=== PATIENT | female | born 1975 | race Caucasian/White ===

== ENCOUNTER 2022-07-05 19:29 | Emergency (ER) | payer BC, SELFPAY ==
[2022-07-05 19:31] VITALS: BP 143/91; PULSE 91; RESP 14; TEMP 36.3; O2SAT 97; BMI 34.9
--- NOTE | 2022-07-05 20:01 | ED_ITS ---
HPI - General Adult General Chief complaint: Ear/Nose/Throat Problem Stated complaint: Ear/sinus pain Time Seen by Provider: 07/05/22 19:38 History of Present Illness HPI narrative: 46-year-old woman presenting to the emergency department with concern of left- sided facial pain. She is worried she might have a sinus infection or a eye ear infection. She did have some what sounds like postnasal drip starting about a week ago. Not really with sore throat. Occasional lightly phlegm ache cough. Short of breath. No chest pain. She woke then about 3 to days ago with soreness in her left face or jaw area upper, such that she felt as though she has been clenching her teeth all night. She does not know that she does that. Is not describing pain with eating really. No drainage from ears. No fevers. She thought maybe was having some dental problem. Just seems uncertain. She denies seasonal environmental allergies. Related Data Home Medications Medication Instructions Recorded Confirmed No Known Home Medications 07/05/22 07/05/22 Allergies Allergy/AdvReac Type Severity Reaction Status Date / Time No Known Drug Allergies Allergy Verified 07/05/22 19:34 Review of Systems Status of ROS: Reports: 6 or more systems reviewed and unremarkable except as noted in History and below [facility] Social History Smoking Status: Never smoker How often do you have a drink containing alcohol: never AUDIT-C Alcohol total score: 0 Non-prescribed substance use: denies use Exam Narrative: Exam Narrative: Pleasant. NAD. Does not sound to be congested. Breathing easily and lungs appear to be clear. Head is atraumatic. Ear canals are clear of inflammation and fluid. TMs bilaterally are clear. There is no tenderness palpation of the pin AR tragus. TMJ area seems to be free of pain as well though there is a little crepitus palpated. She is not sore to palpation along the mandible over the masseter musculature. Parotid gland area is also nontender. Oropharynx is moist with dentition in good repair. Has some mild inflammation around the left parotid duct but again not sore to palpation in this area. Posterior oropharynx with some cobblestoning. No facial swelling or erythema she is mildly tender to percussion over the left maxillary sinus. Extraocular movements are full in appear to be without pain. Const: Vital Signs, click to edit/add: Vital Signs - 24 hr 07/05/22 19:31 Temperature 97.3 F L Pulse Rate [Pulse Oximeter] 91 Respiratory Rate 14 Blood Pressure [Ri ght Upper Arm] 143/91 H Pulse Oximetry 97 Oxygen Delivery Me thod Room Air Documenting provider has reviewed patient's vital signs: yes Course Vital Signs Vital signs: Initial Vital Signs Temperature 97.3 F L 07/05/22 19:31 Temperature Source Temporal Artery Scan 07/05/22 19:31 Pulse Rate 91 07/05/22 19:31 Pulse Rhythm Regular 07/05/22 19:31 Respiratory Rate 14 07/05/22 19:31 Blood Pressure 143/91 H 07/05/22 19:31 Blood Pressure Mean 108 H 07/05/22 19:31 Blood Pressure Position Sitting 07/05/22 19:31 Pulse Oximetry 97 07/05/22 19:31 Oxygen Delivery Method Room Air 07/05/22 19:31 Vital Signs Temperature 97.3 F L 07/05/22 19:31 Pulse Rate 91 07/05/22 19:31 Respiratory Rate 14 07/05/22 19:31 Blood Pressure 143/91 H 07/05/22 19:31 Pulse Oximetry 97 07/05/22 19:31 Oxygen Delivery Method Room Air 07/05/22 19:31 Temperature 97.3 F L 07/05/22 19:31 Pulse Rate 91 07/05/22 19:31 Respiratory Rate 14 07/05/22 19:31 Blood Pressure 143/91 H 07/05/22 19:31 Pulse Oximetry 97 07/05/22 19:31 Oxygen Delivery Method Room Air 07/05/22 19:31 Medical Decision Making MDM Narrative Medical decision making narrative: Does have persistent soreness in the maxillary sinus suggesting sinusitis. There is also cobblestoning suggesting some postnasal drip. TMs are clear so no otitis. Parotitis could cause pain in the same area along with temporomandibular joint dysfunction. Does not appear to have dental injury and also in good repair. I think reasonable to address 1st as a sinus problem. See patient discharge plan Discharge Plan Discharge Clinical Impression: Post-nasal drip, Facial pain, Sinusitis Patient Disposition: Home, Self-Care Condition: Stable Additional Instructions: Focus on hydration. Might sleep under the mist of cool mist humidifier. Consider use of a Neti pot and nasal saline rinses. Pay close attention to your dentition; if this clearly starts to be a source of pain would want to address sooner. I think pseudoephedrine, I like the 12 hour variation, would be helpful for dryi ng and decongestion. Can take up to 800 mg of ibuprofen per dose or up to 1000 mg of acetaminophen per dose; these can be combined. Alternative to the ibuprofen could be up to 500 mg naproxen 2 times daily. Prednisone from [facility]. Take the prednisone as 60 mg daily for 2 days, then 40 mg daily for 3 days, then 20 mg daily for 2 days. Prescriptions: No Action No Known Home Medications Follow Up/Referrals: Provider,Not a Local [Primary Care Provider] - Stand Alone Forms: [facility] [employer] Info Instructions
== END 2022-07-05 20:16 | disposition home or self-care (01) ==
LOC: ED 20:14
PROVIDERS: Emergency Provider Family Medicine
DX: G50.1 Atypical facial pain (principal); J32.9 Chronic sinusitis, unspecified
CPT/HCPCS: 99283